=== PATIENT | female | born 1990 | race Caucasian/White ===

== ENCOUNTER 2017-06-02 18:12 | Emergency (ER) | payer OTHER ==
[~2017-06-02] VITALS: Ht 167.6 cm; Wt 90.7 kg
[~2017-06-02 18:12] MED LIST: ACETAMINOPHEN-1 EAC1 PO; ADULT LOW DOSE81 MG; AMOXICILLIN875 MG PO; AUGMENTIN 875875 MG PO; BACTRIM DS TAB1 EACH PO; CALCIUM 600 +1 EAC1; CARISOPRODOL 3350 MG PO; CIPRO250 M1 PO; CIPRO500 M1 PO; CIPRO500 MG PO; CIPROFLOXACIN500 M1 PO; CIPROFLOXACIN500 M3 PO; DEPO-PROVERA; DOXYCYCLINE 10100 M1 PO; FLAGYL; FLAGYL500 MG PO; FLEXERIL PO; FLOMAX0.4 MG PO; FOLIC ACID 1 MG1 MG; HEPARIN; HYDROCODONE-AP1 EAC6 PO; HYDROXYZINE HCL25 M1 PO; LEVSIN0.125 MG PO; LOVENOX SC; MACROBID 100 M100 M1 PO; MELATONIN3 MG PO; MOBIC7.5 M1 PO; NAPROSYN500 MG PO; NOHOMEMEDICATIONS; NORCO 5-325 TA1 EACH PO; ONDANSETRON HCL4 M2 PO; OXYCODON-ACETA1 EAC1 PO; PERCOCET 5-3251 EACH PO; PHENAZOPYRIDIN200 M2 PO; PREDNISONE 20 M20 M1 PO; PREDNISONE 20 M20 MG PO; PRENATAL; PRENATAL MULTI1 EAC2; PROMETHAZINE-D120 ML PO; PYRIDIUM200 M2 PO; PYRIDIUM200 MG PO; RELAFEN500 MG PO; ROBAXIN 750 MG750 MG PO; TRAMADOL 50 MG50 MG PO; ULTRAM 50MG TAB50 MG PO; VENTOLIN HFA INH8 GM IH; ZOFRAN ODT4 MG PO; ZOFRAN4 MG PO
[2017-06-02] MEDS ORDERED: MELATONIN1 M2 PO (18:23)
[2017-06-02 18:43] LABS: URINE BILIRUBIN NEGATIVE (Negative); URINE BLOOD NEGATIVE (Negative); URINE CLARITY CLEAR; URINE COLOR YELLOW; URINE GLUCOSE-RANDOM NEGATIVE (Negative); URINE KETONES NEGATIVE (Negative); URINE LEUKOCYTES-REFLEX NEGATIVE (Negative); URINE NITRITE-REFLEX NEGATIVE (Negative); URINE PROTEIN NEGATIVE (Negative); URINE UROBILINOGEN 0.2 E.U./dl (0.2-1.0)
[2017-06-02 18:44] LABS: ABSOLUTE EOSINOPHILS 0.2 thou/uL (0.0-0.7); ABSOLUTE LYMPHOCYTES 2.8 thou/uL (0.8-5.3); ABSOLUTE MONOCYTES 0.5 thou/uL (0.0-1.2); ABSOLUTE NEUTROPHILS 4.8 thou/uL (1.6-8.1); BASOPHILS 0.6 %; EOSINOPHILS 2.9 %; HEMATOCRIT 40.7 % (37.0-47.0); HEMOGLOBIN 13.9 gm/dL (12.0-15.0); LYMPHOCYTES 33.5 %; MCH 31.3 pg (26.0-34.0); MCHC 34.1 g/dL (28.0-37.0); MCV 91.9 fL (80.0-100.0); MONOCYTES 6.2 %; MPV 8.3 fl. (7.2-11.1); NUCLEATED RBCS 0 /100WBC; PLATELET COUNT* 231 thou/uL (150-400); POLYS 56.8 %; RBC 4.42 mil/uL (4.20-5.00); RDW-CV 12.5 % (10.5-14.5); WBC 8.5 thou/uL (4.0-11.0)
[2017-06-02 18:51] LABS: CALCIUM 8.8 mg/dL (8.5-10.1); CREATININE 0.9 mg/dL (0.6-1.3); POTASSIUM 3.7 mmol/L (3.5-5.1)
[2017-06-02 18:56] LABS: ALBUMIN 3.6 g/dL (3.4-5.0); TOTAL BILIRUBIN 0.3 mg/dL (<0.1-1.0); TOTAL PROTEIN 7.3 g/dL (6.4-8.2)
[2017-06-02] MEDS ORDERED: ZOFRAN ODT4 MG PO (21:22)
[2017-06-02] MEDS ORDERED: NORCO 5-325 TA1 EACH PO (21:22)
[2017-06-02 21:45] VITALS: BP 130/60
== END 2017-06-02 21:45 | disposition home or self-care (01) ==
LOC: M.ERS 18:12
PROVIDERS: Nurse Practitioner Family
DX: N20.0 Calculus of kidney (principal); F17.210 Nicotine dependence, cigarettes, uncomplicated; Z88.8 Allergy status to other drugs, medicaments and biological substances

== ENCOUNTER 2017-12-29 14:00 | Emergency (ER) | payer OTHER ==
[~2017-12-29] VITALS: Ht 167.6 cm; Wt 95.3 kg
[~2017-12-29 14:00] MED LIST changes: +MELATONIN1 M2 PO
[2017-12-29 14:45] VITALS: BP 121/63
== END 2017-12-29 14:50 | disposition left against medical advice (07) ==
LOC: M.ERS 14:00
DX: F41.0 Panic disorder [episodic paroxysmal anxiety] (principal); R42 Dizziness and giddiness; F17.210 Nicotine dependence, cigarettes, uncomplicated; Z88.6 Allergy status to analgesic agent; Z87.442 Personal history of urinary calculi; Z90.49 Acquired absence of other specified parts of digestive tract

== ENCOUNTER 2018-01-30 06:06 | Observation (INO) | payer OTHER ==
[~2018-01-30] VITALS: Ht 167.6 cm; Wt 93.9 kg
[2018-01-30] VITALS (8 sets, daily range): BP systolic 91–138; BP diastolic 55–93
--- NOTE | ~2018-01-30 | OP ---
[address] [address] OPERATIVE REPORT Name: HECTOR WEBBER Room: [address] IN .R.#: [id number] Admission: 01/30/18 Attend Phys: Nitza Maria DO Discharge: Date of : 86 Report #: [id number] THIS REPORT FOR: //name// CC: BRONSON Toletnino Physician staff This is IRVIN Mercado dictating operative report on behalf of Dr. Nitza Maria. PREOPERATIVE DIAGNOSIS: Acute appendicitis. POSTOPERATIVE DIAGNOSIS: Acute appendicitis. SURGEON: Nitza Maria DO CO-SURGEON: IRVIN Mercado. FLITCH HANGER: None. OPERATION PERFORMED: Laparoscopic appendectomy. ANESTHESIA: General and local. ESTIMATED BLOOD LOSS: 2 mL. SPECIMENS REMOVED: Appendix. COMPLICATIONS: None. FINDINGS: Mild dilatation of the appendix. Enlarged uterus with some inflammatory changes in the pelvis. HISTORY OF PRESENT ILLNESS: The patient is a 27-year-old female who presented to the Emergency Room with complaints of acute right lower quadrant pain for the last 2 days. Pain is associated with chills, nausea and vomiting. She also admitted to having diarrhea for the last couple of days. Last meal was around 9:30 the night before. It was discussed that based on CT findings, there was evidence of a possible early acute appendicitis. Laparoscopic appendectomy would be recommended. Risks and complications discussed include bleeding, infection, injury to surrounding structures, possible need for drain placement, possible open procedure, possible risks of anesthesia. She acknowledged understanding of the risks and agreed to proceed with surgery. DESCRIPTION OF PROCEDURE: After consent was obtained, the patient was taken to [address] [address] OPERATIVE REPORT Name: WEBBERHECTOR Room: [address] [place] ..#: [id number] Admission: 01/30/18 Attend Phys: Nitza Maria DO Discharge: Date of : 86 Report #: [id number] the operating room and placed in the supine position. SCDs applied to bilateral lower extremities, safety belt placed across the patient's waist. Two grams of Ancef given for surgical prophylaxis. Anesthesia was administered without any complication. The patient was then prepped and draped in a standard sterile fashion. Timeout was performed to confirm the patient and procedure. A 5 mL of 0.5% Marcaine were injected into the supraumbilical space. Using a #11 blade scalpel, a vertical incision was made supraumbilical. Electrocautery was used for hemostasis. S retractors used to bluntly dissect down to the level of the fascia. Fascia was grasped between 2 Kochers and elevated. The fascia was then scored. Hemostat used to bluntly enter the peritoneum. Finger sweep was performed to ensure no anterior abdominal wall adhesions. A 10 mm Lay trocar was then inserted into the abdomen after 2 stitches of 0 Vicryl were placed on either side of the fascia. Insufflation was initiated without any complication. Camera was inserted in the abdomen. Intra-abdominal contents were inspected. The appendix could be seen just below the omentum in the right lower quadrant. The pelvis was inspected and there were some inflammatory changes around the uterus. No obvious findings of ovarian cysts. The patient was then placed in Trendelenburg. Second trocar was placed suprapubic under direct visualization and one in the left lower quadrant under direct visualization. These were both 5 mm trocars. The omentum was swept cephalad. The small bowel was moved medial and cephalad. The appendix was easily seen going up into the cecum. The appendix base was grasped and [place] dissector was used to make a small window at the base of the appendix. A 45 purple load Endo-SVETA stapler was inserted in the abdomen and placed through the previously created window. The appendix was stapled off at the base ensuring not to catch any of the cecum. The stapler was fired. There was no bleeding at the staple line. Another 45 purple load staple was placed and fired across the mesoappendix. The appendix was then placed in laparoscopic EndoCatch bag. Staple lines were inspected for hemostasis. Insufflation was let down for a short period to ensure hemostasis. Once this was ensured, insufflation was reinitiated and the pelvis was further inspected. There was inflammation around the uterus and the right ovary, but no signs of ruptured cyst or any other concerning findings. Insufflation was then let down and trocars were removed under direct visualization to ensure hemostasis. The appendix and its contents were removed from the supraumbilical trocar site. All counts were correct at the end of the case. The supraumbilical subcutaneous tissue was closed with 3-0 Vicryl. All skin incisions were closed with 4-0 Monocryl in a subcutaneous fashion. Sterile dressing was applied over top. The patient tolerated the procedure well and was awoken from anesthesia without any complication and transferred to PACU in stable condition. By: [id number] Denis DO /carlo
[2018-01-30] MEDS ORDERED: WELLBUTRIN 100100 MG (06:14)
[2018-01-30 06:25] LABS: URINE BILIRUBIN NEGATIVE (Negative); URINE BLOOD NEGATIVE (Negative); URINE CLARITY CLEAR; URINE COLOR YELLOW; URINE GLUCOSE-RANDOM NEGATIVE (Negative); URINE KETONES TRACE (Negative); URINE LEUKOCYTES-REFLEX TRACE (Negative); URINE NITRITE-REFLEX NEGATIVE (Negative); URINE PROTEIN NEGATIVE (Negative); URINE SPECIFIC GRAVITY 1.025 (1.005-1.030); URINE UROBILINOGEN 0.2 E.U./dl (0.2-1.0)
[2018-01-30 06:39] LABS: BACTERIA-REFLEX 1-9 Few /HPF (None Seen); CALCIUM OXALATE 4-10 Moderate /LPF (None Seen); CASTS None Seen /LPF (None Seen); SQUAMOUS 0-3 Few /LPF (0-3); URINE RBC 0-2 Rare /HPF (0-2); URINE WBC-REFLEX 0-5 Rare /HPF (0-5)
[2018-01-30 06:43] LABS: ABSOLUTE BASOPHILS 0.1 thou/uL (0.0-0.2); ABSOLUTE EOSINOPHILS 0.2 thou/uL (0.0-0.7); ABSOLUTE LYMPHOCYTES 2.7 thou/uL (0.8-5.3); ABSOLUTE MONOCYTES 0.7 thou/uL (0.0-1.2); ABSOLUTE NEUTROPHILS 5.4 thou/uL (1.6-8.1); BASOPHILS 0.8 %; EOSINOPHILS 2.5 %; HEMATOCRIT 42.8 % (37.0-47.0); HEMOGLOBIN 14.4 gm/dL (12.0-15.0); LYMPHOCYTES 29.6 %; MCH 31.1 pg (26.0-34.0); MCHC 33.6 g/dL (28.0-37.0); MCV 92.5 fL (80.0-100.0); MONOCYTES 8.2 %; MPV 8.5 fl. (7.2-11.1); NUCLEATED RBCS 0 /100WBC; PLATELET COUNT* 236 thou/uL (150-400); POLYS 58.9 %; RBC 4.62 mil/uL (4.20-5.00); RDW-CV 12.8 % (10.5-14.5); WBC 9.2 thou/uL (4.0-11.0)
[2018-01-30 07:01] LABS: CALCIUM 9.2 mg/dL (8.5-10.1); CREATININE 0.9 mg/dL (0.6-1.3); POTASSIUM 3.5 mmol/L (3.5-5.1)
[2018-01-30 07:06] LABS: ALBUMIN 3.7 g/dL (3.4-5.0); TOTAL BILIRUBIN 0.3 mg/dL (<0.1-1.0); TOTAL PROTEIN 7.3 g/dL (6.4-8.2)
[2018-01-30] MEDS ORDERED: NORCO 5-325 TA1 EACH PO (18:25)
--- NOTE | 2018-02-03 17:08 | PATH ---
[address] [address] PATHOLOGY RPT PROCEDURE Name: HECTOR WEBBER Room: [address] [place] MViriRViri#: [id number] Admission: 01/30/18 Date of : 86 Discharge: 01/30/18 Report #: [id number] Path Case #: [id number] [facility] Accession Number: [id number] . 01 Material submitted: . APPENDIX . 01 Clinician provided ICD-10: R10.31 . 01 Clinical history: . RLQ pain, abdominal Acute appendicitis . 02 Diagnosis: Appendix: - Benign, non-inflamed appendix. . (MARQUISE:vjm;02/02/2018) AGA/02/02/2018 . 02 Electronically signed: . Jason Mcleod MD, Pathologist NPI- [id number] . 01 Gross description: . The specimen is received in formalin, labeled "Hector Webber, tramaine" and consists of a curved appendix measuring 4.4 cm in length and 0.7 cm in diameter with mesoappendix lining the entire specimen ranging from 0.5 cm to 1.5 cm. The serosa is naik-matthews, smooth, and shiny. Sectioning reveals a dilated lumen up to 0.5 cm containing brown fecal material and no discrete fecaliths or mass lesions. The appendix is entirely submitted in A1-A3. (SDY; 02/01/2018) SYU/SYU . 02 Pathologist provided ICD-10: R10.31 . 02 CPT . 702143 Specimen Comment: A courtesy copy of this report has been sent to Specimen Comment: [phone], . Specimen Comment: Report sent to / DR BACA Performed at: [address] [facility] [id number] MD Roshan Martinez MD Phone: [phone] [place] [address] PATHOLOGY RPT PROCEDURE Name: HECTOR WEBBER Room: [address] MViriRViri#: [id number] Admission: 01/30/18 Date of : 86 Discharge: 01/30/18 Report #: [id number] Path Case #: [id number] Performed at: [address] [facility] [address] [place] [id number] MD Jason Mcleod MD Phone: [phone]
== END 2018-01-30 19:30 | disposition home or self-care (01) ==
LOC: M.ERS 06:06 → M.3W 08:50 → M.TBA-ER 08:50 → M.3W 13:44 → M.TBA-ER 13:44 → M.3W 13:44
PROVIDERS: Emergency Medicine; ADMIT Surgery
DX: K35.80 Unspecified acute appendicitis (principal); F17.210 Nicotine dependence, cigarettes, uncomplicated; Z72.89 Other problems related to lifestyle; Z87.442 Personal history of urinary calculi; Z90.49 Acquired absence of other specified parts of digestive tract

== ENCOUNTER 2018-03-27 02:14 | Inpatient (IN) | payer OTHER ==
[~2018-03-27] VITALS: Ht 167.6 cm; Wt 92.1 kg
[~2018-03-27 02:14] MED LIST changes: +WELLBUTRIN 100100 MG
[2018-03-27 02:21] VITALS: BP 139/97
[2018-03-27 02:49] LABS: URINE BILIRUBIN NEGATIVE (Negative); URINE BLOOD 3+ (Negative); URINE CLARITY SL CLOUDY; URINE COLOR YELLOW; URINE GLUCOSE-RANDOM NEGATIVE (Negative); URINE KETONES TRACE (Negative); URINE LEUKOCYTES-REFLEX NEGATIVE (Negative); URINE NITRITE-REFLEX NEGATIVE (Negative); URINE PROTEIN NEGATIVE (Negative); URINE SPECIFIC GRAVITY >= 1.030 (1.005-1.030); URINE UROBILINOGEN 0.2 E.U./dl (0.2-1.0)
[2018-03-27 03:10] LABS: AMP/METHAMP Negative (Negative); BARBITURATES Negative (Negative); BENZODIAZEPINES Negative (Negative); COCAINE Negative (Negative); METHADONE Negative (Negative); OPIATES Negative (Negative); PCP Negative (Negative); THC Negative (Negative)
[2018-03-27 04:01] LABS: CASTS None Seen /LPF (None Seen); CRYSTALS None Seen /LPF (None Seen); MUCUS 4-6 Moderate strn/LPF (None Seen); SQUAMOUS 4-10 Moderate /LPF (0-3); URINE WBC-REFLEX 0-5 Rare /HPF (0-5)
[2018-03-27 05:56] LABS: ABSOLUTE BASOPHILS 0.1 thou/uL (0.0-0.2); ABSOLUTE EOSINOPHILS 0.2 thou/uL (0.0-0.7); ABSOLUTE LYMPHOCYTES 3.1 thou/uL (0.8-5.3); ABSOLUTE MONOCYTES 0.6 thou/uL (0.0-1.2); ABSOLUTE NEUTROPHILS 4.7 thou/uL (1.6-8.1); BASOPHILS 0.9 %; HEMATOCRIT 41.6 % (37.0-47.0); HEMOGLOBIN 14.4 gm/dL (12.0-15.0); LYMPHOCYTES 35.8 %; MCH 32.4 pg (26.0-34.0); MCHC 34.7 g/dL (28.0-37.0); MCV 93.3 fL (80.0-100.0); MONOCYTES 6.7 %; MPV 9.5 fl. (7.2-11.1); NUCLEATED RBCS 0 /100WBC; PLATELET COUNT* 264 thou/uL (150-400); POLYS 54.6 %; RBC 4.46 mil/uL (4.20-5.00); RDW-CV 12.6 % (10.5-14.5); WBC 8.6 thou/uL (4.0-11.0)
[2018-03-27 06:01] LABS: CALCIUM 9.2 mg/dL (8.5-10.1); CREATININE 0.8 mg/dL (0.6-1.3); POTASSIUM 3.2 mmol/L (3.5-5.1)
[2018-03-27 06:06] LABS: ALBUMIN 3.4 g/dL (3.4-5.0); TOTAL BILIRUBIN 0.2 mg/dL (<0.1-1.0); TOTAL PROTEIN 7.5 g/dL (6.4-8.2)
[2018-03-27 06:51] VITALS: BP 106/73
[2018-03-27 07:30] VITALS: BP 110/62
[2018-03-27 17:00] VITALS: BP 117/97
[2018-03-27 20:45] VITALS: BP 111/64
[2018-03-28 04:13] LABS: ABSOLUTE EOSINOPHILS 0.2 thou/uL (0.0-0.7); ABSOLUTE LYMPHOCYTES 2.5 thou/uL (0.8-5.3); ABSOLUTE MONOCYTES 0.5 thou/uL (0.0-1.2); ABSOLUTE NEUTROPHILS 3.5 thou/uL (1.6-8.1); BASOPHILS 0.5 %; EOSINOPHILS 2.6 %; HEMATOCRIT 39.1 % (37.0-47.0); HEMOGLOBIN 13.4 gm/dL (12.0-15.0); LYMPHOCYTES 37.8 %; MCHC 34.2 g/dL (28.0-37.0); MCV 93.7 fL (80.0-100.0); MPV 8.8 fl. (7.2-11.1); NUCLEATED RBCS 0 /100WBC; PLATELET COUNT* 199 thou/uL (150-400); POLYS 52.1 %; RBC 4.18 mil/uL (4.20-5.00); RDW-CV 12.9 % (10.5-14.5); WBC 6.7 thou/uL (4.0-11.0)
[2018-03-28 04:22] LABS: CALCIUM 8.7 mg/dL (8.5-10.1); CREATININE 0.8 mg/dL (0.6-1.3); MAGNESIUM 1.9 mg/dL (1.8-2.4); POTASSIUM 4.3 mmol/L (3.5-5.1)
--- NOTE | 2018-03-28 07:59 | CON ---
[address] [address] CONSULTATION Name: HECTOR WEBBER Room: [address] IN .R.#: [id number] Admission: 03/27/18 Attend Phys: Guera Winkler MD Discharge: Date of : 86 Report #: [id number] THIS REPORT FOR: //name// CC: Phil Winkler DATE OF SERVICE: 03/27/2018 REFERRING PHYSICIAN: Dr. Melanie Winkler. REASON FOR CONSULTATION: Left ureteral calculus and flank pain. HISTORY OF PRESENT ILLNESS: This is a 27-year-old female with a history of recurrent urinary tract stones. She had acute onset of left-sided flank pain and nausea last night. The pain became unremitting, and she presented to the Emergency Department. She was admitted for pain control and further evaluation. Urology was consulted regarding left ureteral calculus. The patient reports the pain control has been good since hospitalization. Nausea has resolved. She denies fever. She denies dysuria, hematuria or difficulty voiding. She denies fragment passage. PAST MEDICAL HISTORY: As above. She reports appendectomy a few months ago. Also, has a history of cholecystectomy. PAST SURGICAL HISTORY: As above. She has had ureteroscopic stone manipulation, last performed by Dr. Jones about a year ago. She reports she does not tolerate stents well. ALLERGIES: INCLUDE TORADOL AND TRAMADOL. SOCIAL HISTORY: She smokes cigarettes. Drinks alcohol occasionally. FAMILY HISTORY: She does not know of any family history of renal disease. REVIEW OF SYSTEMS: As per the history of present illness. No chest pain, cough, shortness of breath or palpitations. She reports cold a few weeks ago, but no other recent illness. PHYSICAL EXAMINATION: VITAL SIGNS: Temperature 36.8, pulse 103, respirations 20, blood pressure 110/62. GENERAL: This is a 27-year-old female in no acute distress. She is resting comfortably. She is awake, alert and oriented x 3. Answers questions appropriately. HEENT: Normocephalic, atraumatic. NECK: [place] [address] CONSULTATION Name: HECTOR WEBBER SIDRA Room: [address] IN [facility]#: [id number] Admission: 03/27/18 Attend Phys: Guera Winkler MD Discharge: Date of : 86 Report #: [id number] RESPIRATORY: Effort and excursion normal. CARDIOVASCULAR: Rhythm is regular. Radial pulses are palpable. ABDOMEN: Soft and nondistended. She has mild tenderness in the left upper quadrant and flank. No guarding or rebound. Left costovertebral angle is tender as well. Spine and right costovertebral angle are nontender. Bladder is nontender, nonpalpable. EXTREMITIES: Warm. Moves all extremities well. No peripheral edema. LABORATORY DATA: Includes sodium 142, potassium 3.2, chloride 106, CO2 of 22, BUN 10, creatinine 0.8. White count 8.6, hemoglobin 14.4, platelet count 264,000. Urinalysis reveals 11-20 red cells, 0-5 white cells and moderate bacteria. Culture on that is pending. Inpatient medication list is reviewed. Potassium is being supplemented. Noncontrast CT scan of the abdomen and pelvis was reviewed. See the report. I reviewed the images. Report is conflicting regarding the side of the ureteral calculus/calculi, but images clearly show 1-2 stones in the left proximal ureter with a 3-5 mm overall burden. She has bilateral renal calculi as well. Left hydronephrosis is noted. Findings and options for management were discussed with the patient including medical expulsive therapy, outpatient shockwave lithotripsy, ureteroscopic stone manipulation and stent placement. She is familiar with these procedures due to her history. They were discussed in detail. Pros and cons of various approaches were discussed. She is interested in an outpatient attempt at medical expulsive therapy, but wants to see how her pain response to oral medications. We will order a regular diet and p.o. Percocet as well as daily Flomax. Her urine is being strained. I encouraged her to continue that if she is discharged and call the office next week for followup. I advised her that if she is discharged, she should return for problems with pain control, fever or vomiting. IMPRESSION: Left proximal ureteral calculus/calculi. PLAN: Medical expulsive therapy. Attempt to transition to oral pain medication. Okay for discharge home from a urologic standpoint if pain is controlled with this. If she remains hospitalized, we will check a KUB and repeat lab in the morning and make her n.p.o. after midnight in case intervention is needed. <ELECTRONICALLY SIGNED> By: Christopher Brito MD 03/28/18 [id number] Brito MD /carlo
[2018-03-28] MEDS ORDERED: FLOMAX0.4 MG PO (10:11)
[2018-03-28] MEDS ORDERED: PERCOCET PO (10:12)
[2018-03-28] MEDS ORDERED: SENNA S TABLET1 EACH PO (10:12)
[2018-03-28] MEDS ORDERED: ZOFRAN ODT4 MG DISSOLVE (10:13)
[2018-03-28 10:30] VITALS: BP 111/64
[2018-03-28 11:13] VITALS: BP 111/64
== END 2018-03-28 11:04 | disposition home or self-care (01) | DRG 694 ==
LOC: M.ERS 02:14 → M.3W 05:31 → M.TBA-ER 05:31 → M.ORTHSURG 06:58 → M.3W 15:12
PROVIDERS: Emergency Medicine; Family Medicine; ADMIT Internal Medicine
DX: N20.2 Calculus of kidney with calculus of ureter (principal); F17.210 Nicotine dependence, cigarettes, uncomplicated; E87.6 Hypokalemia; E83.42 Hypomagnesemia; F41.9 Anxiety disorder, unspecified; Z79.899 Other long term (current) drug therapy; Z28.21 Immunization not carried out because of patient refusal; Z90.49 Acquired absence of other specified parts of digestive tract; Z88.8 Allergy status to other drugs, medicaments and biological substances; Z82.49 Family history of ischemic heart disease and other diseases of the circulatory system

== ENCOUNTER 2018-07-17 17:46 | Emergency (ER) | payer OTHER ==
[~2018-07-17] VITALS: Ht 162.6 cm; Wt 74.8 kg
[~2018-07-17 17:46] MED LIST changes: +PERCOCET PO; +SENNA S TABLET1 EACH PO; +ZOFRAN ODT4 MG DISSOLVE
[2018-07-17 18:17] LABS: URINE BILIRUBIN NEGATIVE (Negative); URINE BLOOD NEGATIVE (Negative); URINE CLARITY SL CLOUDY; URINE COLOR YELLOW; URINE GLUCOSE-RANDOM NEGATIVE (Negative); URINE KETONES TRACE (Negative); URINE LEUKOCYTES-REFLEX NEGATIVE (Negative); URINE NITRITE-REFLEX NEGATIVE (Negative); URINE PROTEIN NEGATIVE (Negative); URINE UROBILINOGEN 0.2 E.U./dl (0.2-1.0)
[2018-07-17 18:23] LABS: SQUAMOUS 4-10 Moderate /LPF (0-3)
[2018-07-17 18:25] LABS: BACTERIA-REFLEX 1-9 Few /HPF (None Seen); URINE RBC None Seen /HPF (0-2); URINE WBC-REFLEX 0-5 Rare /HPF (0-5)
[2018-07-17 18:26] LABS: AMORPHOUS URATES Moderate /LPF (None Seen); CASTS None Seen /LPF (None Seen); CRYSTALS None Seen /LPF (None Seen); MUCUS 4-6 Moderate strn/LPF (None Seen)
[2018-07-17 18:30] LABS: ABSOLUTE EOSINOPHILS 0.2 thou/uL (0.0-0.7); ABSOLUTE LYMPHOCYTES 2.6 thou/uL (0.8-5.3); ABSOLUTE MONOCYTES 0.5 thou/uL (0.0-1.2); ABSOLUTE NEUTROPHILS 4.8 thou/uL (1.6-8.1); BASOPHILS 0.4 %; EOSINOPHILS 1.9 %; HEMOGLOBIN 13.7 gm/dL (12.0-15.0); MCHC 34.3 g/dL (28.0-37.0); MCV 90.5 fL (80.0-100.0); MONOCYTES 5.9 %; MPV 8.2 fl. (7.2-11.1); NUCLEATED RBCS 0 /100WBC; PLATELET COUNT* 243 thou/uL (150-400); POLYS 59.8 %; RBC 4.42 mil/uL (4.20-5.00); RDW-CV 12.4 % (10.5-14.5)
[2018-07-17 18:43] LABS: ALBUMIN 3.5 g/dL (3.4-5.0); CREATININE 0.9 mg/dL (0.6-1.3); POTASSIUM 3.6 mmol/L (3.5-5.1); TOTAL BILIRUBIN 0.2 mg/dL (<0.1-1.0); TOTAL PROTEIN 7.2 g/dL (6.4-8.2)
[2018-07-17] MEDS ORDERED: FLOMAX0.4 MG PO (19:51)
[2018-07-17 20:01] VITALS: BP 101/55
== END 2018-07-17 20:02 | disposition home or self-care (01) ==
LOC: M.ERS 17:46
PROVIDERS: Nurse Practitioner Family
DX: N20.0 Calculus of kidney (principal); F17.210 Nicotine dependence, cigarettes, uncomplicated; Z87.442 Personal history of urinary calculi; Z90.49 Acquired absence of other specified parts of digestive tract; Z98.890 Other specified postprocedural states; Z88.6 Allergy status to analgesic agent

== ENCOUNTER 2018-09-17 13:38 | Emergency (ER) | payer OTHER ==
[~2018-09-17] VITALS: Ht 167.6 cm; Wt 90.7 kg
[2018-09-17 14:14] LABS: URINE BILIRUBIN NEGATIVE (Negative); URINE BLOOD NEGATIVE (Negative); URINE CLARITY CLEAR; URINE COLOR YELLOW; URINE GLUCOSE-RANDOM NEGATIVE (Negative); URINE KETONES NEGATIVE (Negative); URINE LEUKOCYTES-REFLEX NEGATIVE (Negative); URINE NITRITE-REFLEX NEGATIVE (Negative); URINE PROTEIN NEGATIVE (Negative); URINE SPECIFIC GRAVITY 1.015 (1.005-1.030); URINE UROBILINOGEN 0.2 E.U./dl (0.2-1.0)
[2018-09-17 14:27] LABS: ABSOLUTE BASOPHILS 0.1 thou/uL (0.0-0.2); ABSOLUTE EOSINOPHILS 0.1 thou/uL (0.0-0.7); ABSOLUTE MONOCYTES 0.5 thou/uL (0.0-1.2); ABSOLUTE NEUTROPHILS 5.8 thou/uL (1.6-8.1); HEMATOCRIT 40.5 % (37.0-47.0); HEMOGLOBIN 13.7 gm/dL (12.0-15.0); LYMPHOCYTES 23.9 %; MCH 31.1 pg (26.0-34.0); MCHC 33.8 g/dL (28.0-37.0); MCV 92.2 fL (80.0-100.0); MONOCYTES 6.4 %; MPV 8.4 fl. (7.2-11.1); NUCLEATED RBCS 0 /100WBC; PLATELET COUNT* 237 thou/uL (150-400); POLYS 67.7 %; RBC 4.39 mil/uL (4.20-5.00); RDW-CV 13.2 % (10.5-14.5); WBC 8.5 thou/uL (4.0-11.0)
[2018-09-17 14:38] LABS: CALCIUM 8.7 mg/dL (8.5-10.1); CREATININE 0.7 mg/dL (0.6-1.3); POTASSIUM 3.9 mmol/L (3.5-5.1)
[2018-09-17 14:43] LABS: ALBUMIN 3.5 g/dL (3.4-5.0); TOTAL BILIRUBIN 0.4 mg/dL (<0.1-1.0); TOTAL PROTEIN 7.1 g/dL (6.4-8.2)
[2018-09-17] MEDS ORDERED: ONDANSETRON HCL4 M2 PO (15:11)
[2018-09-17] MEDS ORDERED: NABUMETONE 750750 M1 PO (15:11)
[2018-09-17 15:32] VITALS: BP 121/73
== END 2018-09-17 15:35 | disposition home or self-care (01) ==
LOC: M.ERS 13:38
PROVIDERS: Nurse Practitioner Family
DX: R10.32 Left lower quadrant pain (principal); F17.210 Nicotine dependence, cigarettes, uncomplicated; Z88.6 Allergy status to analgesic agent; Z90.49 Acquired absence of other specified parts of digestive tract; Z90.89 Acquired absence of other organs; Z87.442 Personal history of urinary calculi

== ENCOUNTER 2018-12-27 18:07 | Emergency (ER) | payer OTHER ==
[~2018-12-27] VITALS: Ht 167.6 cm; Wt 93.9 kg
[~2018-12-27 18:07] MED LIST changes: +NABUMETONE 750750 M1 PO
[2018-12-27 18:38] LABS: URINE BILIRUBIN NEGATIVE (Negative); URINE BLOOD NEGATIVE (Negative); URINE CLARITY CLEAR; URINE COLOR YELLOW; URINE GLUCOSE-RANDOM NEGATIVE (Negative); URINE KETONES NEGATIVE (Negative); URINE LEUKOCYTES-REFLEX NEGATIVE (Negative); URINE NITRITE-REFLEX NEGATIVE (Negative); URINE PROTEIN NEGATIVE (Negative); URINE UROBILINOGEN 0.2 E.U./dl (0.2-1.0)
[2018-12-27 19:02] LABS: ABSOLUTE EOSINOPHILS 0.1 thou/uL (0.0-0.7); ABSOLUTE LYMPHOCYTES 1.9 thou/uL (0.8-5.3); ABSOLUTE MONOCYTES 0.5 thou/uL (0.0-1.2); ABSOLUTE NEUTROPHILS 5.5 thou/uL (1.6-8.1); BASOPHILS 0.5 %; HEMATOCRIT 40.2 % (37.0-47.0); HEMOGLOBIN 13.7 gm/dL (12.0-15.0); LYMPHOCYTES 23.2 %; MCH 31.3 pg (26.0-34.0); MCHC 34.1 g/dL (28.0-37.0); MCV 91.7 fL (80.0-100.0); MONOCYTES 6.5 %; MPV 8.3 fl. (7.2-11.1); NUCLEATED RBCS 0 /100WBC; PLATELET COUNT* 256 thou/uL (150-400); POLYS 68.8 %; RBC 4.39 mil/uL (4.20-5.00); RDW-CV 12.4 % (10.5-14.5)
[2018-12-27 19:06] LABS: CALCIUM 8.9 mg/dL (8.5-10.1); CREATININE 0.7 mg/dL (0.6-1.3); POTASSIUM 3.7 mmol/L (3.5-5.1)
[2018-12-27 19:10] LABS: ALBUMIN 3.5 g/dL (3.4-5.0); TOTAL BILIRUBIN 0.2 mg/dL (<0.1-1.0); TOTAL PROTEIN 7.2 g/dL (6.4-8.2)
[2018-12-27] MEDS ORDERED: NORCO 5-325 TA1 EAC1 PO (20:22)
[2018-12-27] MEDS ORDERED: ZOFRAN ODT4 MG PO (20:23)
[2018-12-27 20:44] VITALS: BP 129/80
== END 2018-12-27 20:47 | disposition home or self-care (01) ==
LOC: M.ERS 18:07
PROVIDERS: Nurse Practitioner Family
DX: R10.9 Unspecified abdominal pain (principal); F17.210 Nicotine dependence, cigarettes, uncomplicated; Z87.442 Personal history of urinary calculi; Z90.49 Acquired absence of other specified parts of digestive tract; Z90.89 Acquired absence of other organs; Z88.6 Allergy status to analgesic agent; Z88.1 Allergy status to other antibiotic agents

== ENCOUNTER 2019-09-13 12:43 | Emergency (ER) | payer OTHER ==
[~2019-09-13] VITALS: Ht 165.1 cm; Wt 96.2 kg
[~2019-09-13 12:43] MED LIST changes: +NORCO 5-325 TA1 EAC1 PO
[2019-09-13 12:59] LABS: URINE BILIRUBIN NEGATIVE (Negative); URINE BLOOD TRACE (Negative); URINE CLARITY CLEAR; URINE COLOR YELLOW; URINE GLUCOSE-RANDOM NEGATIVE (Negative); URINE KETONES NEGATIVE (Negative); URINE LEUKOCYTES-REFLEX 1+ (Negative); URINE NITRITE-REFLEX NEGATIVE (Negative); URINE PROTEIN NEGATIVE (Negative); URINE UROBILINOGEN 0.2 E.U./dl (0.2-1.0)
[2019-09-13 13:14] LABS: ABSOLUTE EOSINOPHILS 0.2 thou/uL (0.0-0.7); ABSOLUTE MONOCYTES 0.4 thou/uL (0.0-1.2); ABSOLUTE NEUTROPHILS 5.4 thou/uL (1.6-8.1); BASOPHILS 0.4 %; EOSINOPHILS 1.9 %; HEMATOCRIT 40.2 % (37.0-47.0); HEMOGLOBIN 13.7 gm/dL (12.0-15.0); LYMPHOCYTES 25.1 %; MCH 30.8 pg (26.0-34.0); MCV 90.7 fL (80.0-100.0); MONOCYTES 5.3 %; MPV 8.3 fl. (7.2-11.1); NUCLEATED RBCS 0 /100WBC; PLATELET COUNT* 234 thou/uL (150-400); POLYS 67.3 %; RBC 4.43 mil/uL (4.20-5.00); RDW-CV 12.4 % (10.5-14.5)
[2019-09-13 13:20] LABS: CALCIUM 8.6 mg/dL (8.5-10.1); CREATININE 0.8 mg/dL (0.6-1.3); POTASSIUM 4.1 mmol/L (3.5-5.1)
[2019-09-13 13:22] LABS: BACTERIA-REFLEX 1-9 Few /HPF (None Seen); CASTS None Seen /LPF (None Seen); CRYSTALS None Seen /LPF (None Seen); SQUAMOUS 0-3 Few /LPF (0-3); URINE RBC 0-2 Rare /HPF (0-2); URINE WBC-REFLEX 0-5 Rare /HPF (0-5)
[2019-09-13 13:23] LABS: ALBUMIN 3.6 g/dL (3.4-5.0); TOTAL BILIRUBIN 0.3 mg/dL (<0.1-1.0); TOTAL PROTEIN 7.5 g/dL (6.4-8.2)
[2019-09-13] MEDS ORDERED: CEFDINIR300 MG PO (14:39)
[2019-09-13] MEDS ORDERED: PYRIDIUM100 M1 PO (14:41)
[2019-09-13] MEDS ORDERED: ONDANSETRON HCL4 M2 PO (14:41)
[2019-09-13] MEDS ORDERED: NORCO 5-325 TA1 EAC1 PO (14:41)
[2019-09-13 15:00] VITALS: BP 113/59
== END 2019-09-13 15:01 | disposition home or self-care (01) ==
LOC: M.ERS 12:43
PROVIDERS: Nurse Practitioner Family
DX: N39.0 Urinary tract infection, site not specified (principal); R10.9 Unspecified abdominal pain; F17.210 Nicotine dependence, cigarettes, uncomplicated; Z88.5 Allergy status to narcotic agent; Z98.51 Tubal ligation status; Z90.49 Acquired absence of other specified parts of digestive tract; Z90.89 Acquired absence of other organs